=== PATIENT | female | born 1995 | race Caucasian/White ===

== ENCOUNTER 2022-07-27 16:11 | Emergency (ER) | payer MEDICAID, SELFPAY ==
--- NOTE | 2022-07-27 16:15 | RT.EKG_ITS ---
APPROVED REPORT Exam: Resting ECG Reason for Exam: dizzy Patient Location: E HR:113 bpm ECG Measurements Heart Rate 113 AXIS NJ 131 P 64 QRSd 86 QRS 83 QT 327 T 43 QTc 448 Conclusion Sinus tachycardia...rate> 99
--- NOTE | 2022-07-27 16:15 | DI.CT_ITS ---
Exam(s) CT HEAD WO EXAM: CT HEAD WO CLINICAL HISTORY: Closed Head injury, AMS, HEadache. TECHNIQUE: Imaging Protocol: Axial computed tomography images with coronal and sagittal reformatted images were created and reviewed COMPARISON: No exams were available for comparison FINDINGS: There is some motion artifact which limits interpretation. The ventricular system is normal in appearance. No evidence of acute intracranial hemorrhage, mass effect, or midline shift. The orbital structures are unremarkable. The temporal bone structures appear intact. Calvarium: Normal. Visualized Paranasal sinuses/Mastoids: Chronic mucoperiosteal thickening of left maxillary antrum, ot herwise clear. IMPRESSION: Normal cranial CT. RADIATION DOSE DELIVERED: 736.76mGy.cm Total DLP 736.76mGy.cm Total DLP DATA REPOSITORY: All CT scans at this facility are submitted to the National Radiology Data Registry (NRDR) Dose Index Registry (DIR) with the [employer] ([employer]). RADIATION OPTIMIZATION: All CT scans at this facility use at least one of these dose optimization te chniques: automated exposure control; mA and/or kV adjustment per patient size (includes targeted exa ms where dose is matched to clinical indication); or iterative reconstruction.
--- NOTE | 2022-07-27 16:15 | DI.RAD_ITS ---
Exam(s) XR CHEST 2V PA LATERAL EXAM: XR CHEST 2V PA LATERAL CLINICAL HISTORY: SOB, Productive cough TECHNIQUE: 2D digital imaging was performed. COMPARISON: No exams were available for comparison FINDINGS: There is a mild biconvex thoracolumbar scoliosis. The heart is not enlarged. The lungs are clear and well expanded. No pleural effusion seen. Mediastin al contours appear intact. IMPRESSION: Normal chest. RADIATION DOSE DELIVERED: Total DLP
[2022-07-27 16:16] VITALS: BP 153/103; PULSE 116; RESP 20; TEMP 37.8; O2SAT 99
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
[2022-07-27] MEDS: LORazepam 2 MG/ML VIAL 1 MG IM (17:01)
[2022-07-27 17:16] LABS: Bilirubin Negative (Negative); Blood Negative (Negative); Clarity Clear (Clear); Glucose Negative (Negative); Ketones Negative (Negative); Leukocyte Esterase Negative (Negative); Nitrite Negative (Negative); Specific Gravity >= 1.030 (1.005-1.025); Urobilinogen 0.2 EU/dL (Up TO 0.2)
[2022-07-27 17:32] LABS: *AMPHETAMINES SCREEN URINE Negative (Negative); *BARBITURATES SCREEN URINE Negative (Negative); *BENZODIAZEPINES SCREEN URINE Negative (Negative); Cannabinoids THC Positive (Negative); Cocaine Screen,Urine Positive (Negative); METHADONE URINE SCREEN Negative (Negative); OPIATES URINE SCREEN Negative (Negative)
[2022-07-27 17:33] LABS: Tricyclic Antidepressants Negative (Negative)
[2022-07-27 18:04] LABS: Abs Immature Grans 0.02 10^3/uL (0.0-0.06); Absolute Basophil Count 0.05 10^3/uL (0.0-0.2); Absolute Eosinophil Count 0.07 10^3/uL (0.0-0.7); Absolute Lymphocyte Count 2.53 10^3/uL (1.2-3.4); Absolute Monocyte Count 0.69 10^3/uL (0.1-0.8); Absolute Neutrophil Count 5.67 10^3/uL (1.2-6.7); Basophils % 0.6; Eosinophils % 0.8; HCT 41.4 % (36.0-46.0); HGB 14.3 g/dL (11.2-15.7); Immature Grans % 0.2; MCHC 34.5 % (32.0-36.0); MCV 87 fL (80-95); MPV 10.6 fL (8.0-11.0); Monocytes % 7.6; Neutrophils % 62.8; Platelet Count 242 10^3/uL (130-400); RBC 4.76 10^6/uL (3.93-5.22); RDW 12.2 % (11.7-14.6); RDW-SD 39.4 fL; WBC 9.03 10^3/uL (4.4-10.8)
[2022-07-27 18:06] LABS: Lactate 0.5 mmol/L (0.9-1.7)
[2022-07-27 18:28] LABS: ALT 18 U/L (14-59); AST 24 U/L (15-37); Albumin 4.1 g/dL (3.4-5.0); Alkaline Phosphatase 61 U/L (46-116); Anion Gap 7.3 mmol/L (3-11); BUN 12 mg/dL (7-18); Bilirubin, Total 0.5 mg/dL (0.2-1.0); CO2 28.7 mmol/L (21.0-32.0); CREATININE 0.6 mg/dL (0.55-1.02); Calcium 9.3 mg/dL (8.5-10.1); Chloride 102 mmol/L (98-107); Estimated GFR 125.31 (mL/min/1.73m2); Glucose 93 mg/dL (74-106); Lipase 29 U/L (73-393); Potassium 3.6 mmol/L (3.5-5.1); Sodium 138 mmol/L (136-145); Total Protein 7.3 g/dL (6.4-8.2)
--- NOTE | 2022-07-27 18:32 | DI.VRAD_ITS ---
PROCEDURE INFORMATION: Exam: CT Head Without Contrast Exam date and time: 07/27/2022 6:19 PM Age: 26 years old Clinical indication: Other: Closed head injury, AMS, headache TECHNIQUE: Imaging protocol: Computed tomography of the head without contrast. Radiation optimization: All CT scans at this facility use at least one of these dose optimization techniques: automated exposure control; mA and/or kV adjustment per patient size (includes targeted exams where dose is matched to clinical indication); or iterative reconstruction. COMPARISON: No relevant prior studies available. FINDINGS: Brain: No hemorrhage. Unremarkable white matter. No mass effect. Cerebral ventricles: No ventriculomegaly. Paranasal sinuses: Mucosal thickening left maxillary sinus. No fluid levels. Mastoid air cells: Visualized mastoid air cells are well aerated. Bones/joints: Unremarkable. No acute fracture. Soft tissues: Unremarkable. IMPRESSION: No acute intracranial hemorrhage Dictated and Authenticated by: Ambrocio Azul MD. Ordering:RADHA Arthur MD
--- NOTE | 2022-07-27 18:46 | DI.VRAD_ITS ---
PROCEDURE INFORMATION: Exam: XR Chest Exam date and time: 07/27/2022 6:29 PM Age: 26 years old Clinical indication: Other: SOB, productive cough TECHNIQUE: Imaging protocol: Radiologic exam of the chest. Views: 2 views. COMPARISON: No relevant prior studies available. FINDINGS: Lungs: Unremarkable. No consolidation. Pleural spaces: Unremarkable. No pleural effusion. No pneumothorax. Heart/Mediastinum: Unremarkable. No cardiomegaly. Bones/joints: Mild dextroscoliosis of the thoracic spine IMPRESSION: No acute findings. Mild dextroscoliosis of the thoracic spine Dictated and Authenticated by: Ambrocio Azul MD. Ordering:RADHA Arthur MD
--- NOTE | 2022-07-27 19:00 | NUR.NOTE ---
Nursing Note:Referral given to Care Management needs PCP, substance abuse, anxiety; 1 to 2 weeks.
[2022-07-27 19:06] VITALS: BP 154/98; PULSE 78; RESP 20; O2SAT 98
--- NOTE | 2022-07-28 14:35 | PDOC.ERCMACT ---
- If Service Date Differs Date of service: 07/28/22 Time of Service: 14:35 Care Management Activity Note Bee is seen in the ED for a closed head injury, anxiety and substance use. At the request of ED provider, CELESTE coordinates a referral to Lacy Rubio MD, of [facility], t-doc, to assist Leticia in obtaining a follow up appointment and in establishing care with a local PCP. She has Medicaid for insurance.
== END 2022-07-27 19:07 | disposition home or self-care (01) ==
PROVIDERS: Emergency Provider Registered Nurse Emergency
DX: S09.90XA Unspecified injury of head, initial encounter (principal); F41.9 Anxiety disorder, unspecified; F19.10 Other psychoactive substance abuse, uncomplicated; W20.8XXA Other cause of strike by thrown, projected or falling object, initial encounter
CPT/HCPCS: 80053; 80307; 83690; 87040; 87637; 93005; 96365; 96372; 99284; 70450; 71046; 81003; 83605; 85025; 93010; 99285; J2060